=== PATIENT | female | born 1945 | race Caucasian/White ===

== ENCOUNTER 2018-01-10 05:54 | Inpatient (IN) | payer MEDICARE ==
--- NOTE | 2017-12-29 11:38 | HP ---
AMENDED REPORT NOW INCLUDES DESIGNATED COSIGNER HISTORY AND PHYSICAL: DATE OF ADMISSION/SURGERY: 01/10/18 DATE OF OFFICE VISIT: 12/28/17 SURGEON: Sandra Mendoza MD.* (DICTATED BY ESTEPHANIE DUBOSE) PROCEDURE: Right total knee arthroplasty. CHIEF COMPLAINT: Right knee pain. HISTORY OF PRESENT ILLNESS: Ms. Aguirre is a 72-year-old female with complaints of right knee pain. She has failed conservative treatment and elected to proceed with a right total knee arthroplasty, which is scheduled for 01/10/[address] Mendoza. PAST MEDICAL HISTORY: 1. DVT, PE 30 years ago. 2. SAFIA. 3. GERD. 4. History of toxic shock syndrome. 5. Hypothyroidism. 6. Crohn disease. PAST SURGICAL HISTORY: 1. Left total knee arthroplasty. 2. Cholecystectomy. 3. Cyst removal/I and D from the axilla. 4. Ex-fix application left lower extremity. 5. Vein surgery, unknown. 6. Tooth implant. CURRENT MEDICATIONS: 1. Naltrexone 4.5 mg daily. 2. Hydrochlorothiazide 25 mg daily. 3. Levothyroxine 50 mcg daily. 4. Multivitamin. 5. Lutein 6 mg daily. 6. Cinnamon. 7. Aspirin 81 mg daily. 8. Zeaxanthin. 9. CBD oil. 10. Joint care. 11. B100. 12. Bone maker complex. 13. Vitamin D3. 14. Ubiquinol. 15. Vitamin C 500 mg daily. ALLERGIES: SULFA, MESALAMINE, BACTRIM, NAPROXEN, PAROXETINE, REMICADE, MERCAPTOPURINE, ART INHIBITORS and RAMIPRIL. FAMILY HISTORY: Coronary artery disease and DVT. SOCIAL HISTORY: She is a 72-year-old female, she lives alone. She does not smoke or use drugs. She uses alcohol rarely. REVIEW OF SYSTEMS: A complete 14-point review of systems was reviewed with the patient and was positive for GERD, hypothyroidism and DVT/PE 30 years ago. She denies history of hepatitis, HIV or MRSA. PHYSICAL EXAMINATION GENERAL: She is well developed, well nourished, in no acute distress. VITAL SIGNS: She stands 5 feet 2 inches tall, weighs 230 pounds. Her blood pressure is 132/60 and heart rate is 88. HEENT: Normocephalic, atraumatic. NECK: Supple. No palpable lymph nodes. PULMONARY: The lungs are clear to auscultation bilaterally. CARDIO: Regular rate and rhythm. Strong S1, S2. ABDOMEN: Soft, nontender and nondistended. NEUROLOGICAL: She is alert and oriented x3. MUSCULOSKELETAL: Right lower extremity, the skin is intact. There are no open wounds or abrasions. Range of motion is 15-120 degrees of flexion. There is a moderate joint effusion. There is a varus deformity of the knee. 2+ dorsalis pedis pulse and intact sensation. IMPRESSION: Ms. Aguirre is a 72-year-old female with severe end-stage osteoarthritis of the right knee. She has failed conservative treatment and elected to proceed with a right total knee arthroplasty. Her surgery is scheduled for 01/10/[address] Mendoza discussed the risks and the benefits of the surgery with the patient and all of her questions were answered. She will follow up with Dr. Mendoza 2 weeks after the surgery. No TXA will be used on this patient. ESTEPHANIE DUBOSE [id number]/[facility] #: [id number] MTDD
[~2018-01-10 05:54] MED LIST: Buffered Lidocaine 0.9% SYRIN* 5 ML/SYR SYRINGE INTRADERM ONE
--- OUTSIDE RECORDS SUMMARY | 2018-01-10 06:00 | XMS REPORT ---
:1945 External Reference #:[id number] Author Organization [facility] [employer] Address [address] [address] Phone [phone] Care Team Providers Name Role Phone Carlos Escalante MD Primary Care Physician Unavailable Payers Type Date Identification Numbers Payment Provider Subscriber Commercial Effective: 2017 Policy Number: [id number] [employer] Medicare Chantelle Aguirre PayID: [id number] [address] [place] [address] Commercial Expires: 2017 Policy Number: Todays Option/[place] Chantelle Aguirre [id number] hi PayID: [id number] [address] [address] Attn: [place] [address] Problems Date Description Provider Status Onset: 08/22/2017 Morbid obesity Sandra Mendoza M.D. Active Onset: 08/22/2017 Localized, primary osteoarthritis Sandra Mendoza M.D. Active Family History Date Family Member(s) Problem(s) Comments General No Current Problems Social History Type Date Description Comments Lives With Alone Occupation Antiques Dealer ETOH Use Rarely consumes alcohol Smoking Patient is a former smoker Exercise Type/Frequency Exercises regularly Allergies, Adverse Reactions, Alerts Date Description Reaction Status Severity Comments 07/29/2010 Sulfa active 07/29/2010 Mesalamine active 07/29/2010 Bactrim active 07/29/2010 Naproxen active 07/29/2010 Paroxetine active 12/28/2017 Remicade active 12/28/2017 Mercaptopurine active 12/28/2017 Philippe Inhibitors active 12/28/2017 Ramipril active Medications Medication Date Status Form Strength Qnty SIG Indications Ordering Provider Naltrexone Low Active Powder 4.5mg 3Months 1 po qd Unknown Dose For Crohns 000 HCTZ Active 25mg. 90units 1 po qd Unknown 000 Levothyroxine Active Powder .05 Unknown Sodium Hydrate 000 Multi Vitamin Active Tablets 1 po qd Unknown 000 Lutein Active Capsules 6mg po qd Unknown 000 Cinnamon Active Capsules 500mg 1 po bid Unknown 000 Asa Active 81mg 30units 1 po qd Unknown 000 Zeaxanthin Active Unknown 000 CBD Oil Active Unknown 000 Joint Care Active Unknown 000 Vitamin B Active Unknown 000 Bone Maker Active Unknown Complex 000 Vitamin D3 Active Unknown 000 Ubiquinol Active Unknown 000 Vitamin C Active Unknown 000 Vicodin Hx Tablets 5-500mg 60tabs 1-2 by 715.16 Ariel Weinberg - lani Gil, every M.D. 011 4-6 hours and needed for pain Vital Signs Date Vital Result Comment 12/28/2017 Height 62 inches 5'2" Weight 232.00 lb Heart Rate 88 /min BP Systolic 132 mmHg BP Diastolic 60 mmHg BMI (Body Mass Index) 42.4 kg/m2 08/22/2017 Height 62 inches 5'2" Weight 236.50 lb Heart Rate 70 /min BP Systolic 130 mmHg BP Diastolic 70 mmHg Respiratory Rate 16 /min Body Temperature 97.4 F Pain Level 7 BMI (Body Mass Index) 43.3 kg/m2 11/11/2010 BP Systolic 160 mmHg BP Diastolic 76 mmHg Results Test Date Test Result H/L Range Note Inr/Protime 12/28/2017 Inr 0.92 0.77-1.02 Laboratory test finding 12/28/2017 Partial Thrombo 33.2 seconds 26.0- 36.3 Time PTT Type & Screen 12/28/2017 Patient Blood Type O Negative Antibody Screen NEGATIVE CBC Auto Diff 12/28/2017 White Blood Count 9.1 10^3/uL 3.5-10.8 Red Blood Count 4.10 10^6/uL 4.00-5.40 Hemoglobin 9.0 g/dL Low 12.0-16.0 Hematocrit 29 % Low 35-47 Mean Corpuscular Volume 72 fL Low 80-97 Mean Corpuscular Hemoglobin 22 pg Low 27-31 Mean Corpuscular HGB Conc 31 g/dL 31-36 Red Cell Distribution Width 18 % High 10.5-15 Platelet Count 403 10^3/uL 150-450 Mean Platelet Volume 8.6 um3 7.4-10.4 Abs Neutrophils 6.4 10^3/uL 1.5-7.7 Abs Lymphocytes 1.8 10^3/uL 1.0-4.8 Abs Monocytes 0.6 10^3/uL 0-0.8 Abs Eosinophils 0.3 10^3/uL 0-0.6 Abs Basophils 0 10^3/uL 0-0.2 Abs Nucleated RBC 0 10^3/uL Granulocyte % 70.3 % 38-83 Lymphocyte % 19.5 % Low 25-47 Monocyte % 7.0 % 0-7 Eosinophil % 3.0 % 0-6 Basophil % 0.2 % 0-2 Nucleated Red Blood Cells % 0 Procedures Date CPT Code Description Status 03/29/2012 39894 Xray Knee 3 Views Completed 12/02/2010 31674 Xray Knee 3 Views Completed 11/23/2010 62044 TKR Total Knee Replacement Completed 07/29/2010 57156 Xray Knee 3 Views Completed 07/29/2010 15083 Xray Knee 3 Views Completed 07/29/2010 78582 Xray Knee 3 Views Completed Encounters Type Date Location Provider CPT E/M Dx Office Visit 08/22/2017 [facility] Sandra Mendoza M.D. 64911 M25.561 10:30a [facility] M17.11 M25.461 E66.01 Z68.41 Office Visit 03/29/2012 1:15p [facility] M.D. 68112 715.16 [facility] Office Visit 04/28/2011 10:30a [facility] M.D. 70134 715.16 [facility] Office Visit 09/23/2010 10:00a [facility] M.D. 69039 719.46 [facility] 715.16 Office Visit 07/29/2010 3:00p [facility] M.D. 12679 719.46 [facility] Plan of Care Future Appointment(s):01/20/2018 10:15 am - Sandra Mendoza M.D. at [facility].01/10/2018 7:30 am - Carlos Krishnan PA-C at [facility].01/10/2018 7:30 am - BLADIMIR Dorsey at [facility].01/10/2018 7:30 am - Sandra Mendoza M.D. at [facility].12/28/2017 - Sandra Mendoza M.D.M25.561 Pain in right kneeFollow up:Follow up: 2 weeks after axzqwipT87.11 Unilateral primary osteoarthritis, right kneeM25.461 Effusion, right knee
--- OUTSIDE RECORDS SUMMARY | 2018-01-10 06:00 | XMS REPORT ---
:1945 External Reference #:[id number] Author Organization [employer] Address [address] [place] [address] Phone [phone] Care Team Providers Name Role Phone Carols Escalante MD Primary Care Physician Unavailable Payers Type Date Identification Numbers Payment Provider Subscriber Commercial Effective: 2017 Policy Number: [id number] [employer] Medicare Chantelle Aguirre PayID: [id number] [address] [place] [address] Commercial Expires: 2017 Policy Number: Todays Option/[place] Chantelle Aguirre [id number] ri PayID: [id number] [address] [address] Attn: [place] [address] Problems Date Description Provider Status Onset: 08/22/2017 [...] Procedures Date CPT Code Description Status 03/29/2012 94236 Xray Knee 3 Views Completed 12/02/2010 70336 Xray Knee 3 Views Completed 11/23/2010 28525 TKR Total Knee Replacement Completed 07/29/2010 60047 Xray Knee 3 Views Completed 07/29/2010 63136 Xray Knee 3 Views Completed 07/29/2010 33449 Xray Knee 3 Views Completed Encounters Type Date Location Provider CPT E/M Dx Office Visit 08/22/2017 [facility] Sandra Mendoza M.D. 09368 M25.561 10:30a [facility] M17.11 M25.461 E66.01 Z68.41 Office Visit 03/29/2012 1:15p [facility] M.D. 27289 715.16 [facility] Office Visit 04/28/2011 10:30a [facility] M.D. 14090 715.16 [facility] Office Visit 09/23/2010 10:00a [facility] M.D. 35159 719.46 [facility] 715.16 Office Visit 07/29/2010 3:00p [facility] M.D. 08200 719.46 [facility] Plan of Care Future Appointment(s):01/20/2018 10:15 am - Sandra Mendoza M.D. at [facility].01/10/2018 7:30 am - Carlos Krishnan PA-C at [facility].01/10/2018 7:30 am - BLADIMIR Dorsey at [facility].01/10/2018 7:30 am - Sandra Mendoza M.D. at [facility].12/28/2017 - Sandra Mendoza M.D.M25.561 Pain in right kneeFollow up:Follow up: 2 weeks after jofvzhyF06.11 Unilateral primary osteoarthritis, right kneeM25.461 Effusion, right knee
--- OUTSIDE RECORDS SUMMARY | 2018-01-10 06:00 | XMS REPORT ---
:1945 External Reference #:[id number] Author Organization [employer] Address [address] [place] [address] Phone [phone] Care Team Providers Name Role Phone Carlos Escalante MD Primary Care Physician Unavailable Payers Type Date Identification Numbers Payment Provider Subscriber Commercial Effective: 2017 Policy Number: [id number] Aetna Medicare Chantelle Aguirre PayID: [id number] [address] [place] [address] Commercial Expires: 2017 Policy Number: Todays Option/[place] Chantelle Aguirre [id number] mi PayID: [id number] [address] [address] Attn: [place] [address] Problems Date Description Provider Status Onset: 08/22/2017 [...] Tablets 5-500mg 60tabs 1-2 by 715.16 Ariel 011 - lani Gil, every M.DCee 011 4-6 hours and needed for pain [...] 160 mmHg BP Diastolic 76 mmHg Results Description No Information Procedures Date CPT Code Description Status 03/29/2012 12007 Xray Knee 3 Views Completed 12/02/2010 41184 Xray Knee 3 Views Completed 11/23/2010 90872 TKR Total Knee Replacement Completed 07/29/2010 21848 Xray Knee 3 Views Completed 07/29/2010 45329 Xray Knee 3 Views Completed 07/29/2010 81287 Xray Knee 3 Views Completed Encounters Type Date Location Provider CPT E/M Dx Office Visit 08/22/2017 [facility] Mendoza M.D. 91193 M25.561 10:30a [facility] M17.11 M25.461 E66.01 Z68.41 Office Visit 03/29/2012 1:15p [facility] M.D. 28357 715.16 [facility] Office Visit 04/28/2011 10:30a [facility] M.D. 58119 715.16 [facility] Office Visit 09/23/2010 10:00a [facility] M.D. 18032 719.46 [facility] 715.16 Office Visit 07/29/2010 3:00p [facility] M.D. 49927 719.46 [facility] Plan of Care Future Appointment(s):01/20/2018 10:15 am - Sandra Mendoza M.D. at [facility]01/10/2018 7:30 am - Carlos Krishnan PA-C at [facility]01/10/2018 7:30 am - BLADIMIR Dorsey at [facility]01/10/2018 7:30 am - Sandra Mendoza M.D. at [facility]12/28/2017 - Sandra Mendoza M.D.M25.561 Pain in right kneeFollow up:Follow up: 2 weeks after krebsjxF75.11 Unilateral primary osteoarthritis, right kneeM25.461 Effusion, right knee
[2018-01-10] MEDS ORDERED: ceFAZolin 2 GM PREMIX in ORs 2 GM/50 ML BAG IVPB ONE (06:09)
[2018-01-10] MEDS ORDERED: Buffered Lidocaine 0.9% SYRIN* 5 ML/SYR SYRINGE ONE (06:09)
[2018-01-10] MEDS ORDERED: Propofol* 10 MG/ML 20 ML BTL IV PUSH ONE ×5 (06:14→09:56)
[2018-01-10] MEDS ORDERED: Midazolam* 1 MG/ML 2 ML VIAL (2 MG) ONE ×4 (06:15→09:12)
[2018-01-10] MEDS ORDERED: fentaNYL* 50 MCG/ML 2 ML VIAL (100 MCG VIAL) ONE (06:15)
[2018-01-10] MEDS ORDERED: Lidocaine 2% PF * 5 ML VIAL ONE (06:15)
[2018-01-10] MEDS ORDERED: ROPIVACAINE 5 MG/ML 30 ML BTL (0.5%) ONE (06:16)
[2018-01-10] MEDS ORDERED: Bupivacaine 0.5% SDV PF* 30ML VIAL ONE (06:16)
[2018-01-10] MEDS ORDERED: KETAMINE HCL* 50 MG/ML 10 ML VIAL ONE (06:16)
[2018-01-10] MEDS ORDERED: Ropivacaine* 2 MG/ML 20 ML VIAL (0.2%) ONE (06:54)
[2018-01-10] MEDS ORDERED: Acetaminophen IV 1GM/100ML * 1,000 MG/100 ML VIAL IVPB ONE (10:18)
[2018-01-10] MEDS ORDERED: Naloxone* 0.4 MG/ML 1 ML VIAL IV PRN (10:18)
[2018-01-10] MEDS ORDERED: HYDROmorphone INJ1* 1 MG/ML SYRINGE IV PRN (10:18)
[2018-01-10] MEDS ORDERED: Polyethylene Glycol 3350* 17 GM PACKET PO PRN (10:28)
[2018-01-10] MEDS ORDERED: Bisacodyl SUPP* 10 MG SUPP PR PRN (10:28)
[2018-01-10] MEDS ORDERED: Cyclobenzaprine TAB* 10 MG PO PRN (10:28)
[2018-01-10] MEDS ORDERED: diPHENhydraMINE IV* 50 MG/ML 1 ml VIAL (BENADRYL) IV PRN (10:28)
[2018-01-10] MEDS ORDERED: oxyCODONE/Acetamin 5/325 MG* TAB PO PRN ×2 (10:28→10:48)
[2018-01-10] MEDS ORDERED: diPHENhydraMINE PO* 25 MG PO PRN (10:28)
[2018-01-10] MEDS ORDERED: Morphine VIAL* 4 MG/ML VIAL (1 ml vial) IV PRN (10:28)
[2018-01-10] MEDS ORDERED: Magnesium Hydroxide LIQ* 30 ML UDC PO PRN (10:28)
[2018-01-10] MEDS ORDERED: Acetaminophen TAB* 325 MG PO SCH (11:00)
[2018-01-10] MEDS ORDERED: Enoxaparin(*) 100 MG/ML SYR SUBCUT SCH (11:00)
[2018-01-10] MEDS ORDERED: Acetaminophen IV 1GM/100ML * 100 ML ONE (11:07)
[2018-01-10] MEDS ORDERED: HYDROcodone/ACETAMIN 5-325 MG* 1 TAB PO PRN (12:03)
[2018-01-10] MEDS ORDERED: traMADol TAB* 50 MG PO PRN (12:04)
[2018-01-10] MEDS: HYDROcodone/ACETAMIN 5-325 MG* 1 TAB PO PRN ×3 (12:16→22:47)
--- NOTE | 2018-01-10 12:18 | RAD ---
HISTORY: s/p right total knee arthroplasty COMPARISONS: August 22, 2017 VIEWS: 3 , Frontal and lateral views of the right knee FINDINGS: BONE DENSITY: There is diffuse osteopenia. BONES: The patient is status post right knee arthroplasty. There is no hardware failure or osteolysis. JOINTS: The patient is status post right knee arthroplasty. ALIGNMENT: There is no dislocation. SOFT TISSUES: Unremarkable. OTHER FINDINGS: None. IMPRESSION: STATUS POST RIGHT KNEE ARTHROPLASTY
--- NOTE | 2018-01-10 14:19 | CONS ---
CC: Sandra Mendoza MD; Carlos Escalante MD CONSULTATION REPORT: DATE OF CONSULTATION: 01/10/18 TIME OF EVALUATION: 11:00 a.m. REQUESTING PHYSICIAN: Sandra Mendoza MD PRIMARY CARE PROVIDER: Carlos Escalante MD HISTORY OF PRESENT ILLNESS: Mrs. Aguirre is a 72-year-old lady with a past medical history of morbid obesity with a BMI of 41.9, obstructive sleep apnea, osteoarthritis, hypertension, psoriasis who presents to the hospital for an elective right total knee replacement with Dr. Mendoza. The patient was evaluated in the PACU where she had no complaints, but she was still under effects of anesthesia. The patient had history of DVT and PE more than 30 years ago when she had a tibial fracture. She states that she was treated with warfarin for "some months " and then this was discontinued. PAST MEDICAL HISTORY: 1. Morbid obesity with a BMI of 41.9. 2. Hypothyroidism. 3. Obstructive sleep apnea. 4. Osteoarthritis. 5. Hypertension. 6. Psoriasis. 7. Crohn disease. MEDICATIONS: 1. Vitamin C 500 mg p.o. daily. 2. Aspirin 81 mg p.o. q.p.m. 3. Calcium carbonate 500 mg p.o. q.a.m. 4. CBD oil 1200 mg p.o. p.r.n. pain. 5. Cholecalciferol 2000 units p.o. q.a.m. 6. Cinnamon bark 500 mg p.o. q.a.m. 7. Glucosamine and chondroitin 1 tablet p.o. b.i.d. 8. Horse chestnut 300 mg p.o. daily. 9. Hydrochlorothiazide 25 mg p.o. daily. 10. Levothyroxine 50 mcg p.o. q.a.m. 11. Ocuvite Lutein 1 capsule p.o. daily. 12. Naltrexone 4 mg p.o. at bedtime. 13. Ubiquinol 200 mg p.o. q.a.m. 14. Vitamin B 1 capsule p.o. q.a.m. ALLERGIES: To MERCAPTOPURINE, ART INHIBITORS, MESALAMINE, NAPROXEN, PAROXETINE , RAMIPRIL, and SULFA. FAMILY HISTORY: Positive for coronary artery disease. SOCIAL HISTORY: She denies history of tobacco or drug use. Occasionally, she drinks alcohol. Surrogate decision maker is her sister, Tanesha Norman, phone number is [phone]. REVIEW OF SYSTEMS: Limited as the patient is still under the influence of anesthesia. PHYSICAL EXAMINATION: Vital Signs: Temperature 98.2, heart rate is 60, respiratory rate 17, oxygen saturation 96% on room air, blood pressure is 115/ 58. General: The patient is a pleasant morbidly obese lady, lying in bed, in no acute distress. HEENT: Pupils are equal. Moist mucous membranes. CVS: Normal S1, S2. Regular rate and rhythm. Chest: Breath sounds bilaterally with no added sounds. Abdomen is obese. Bowel sounds present. Extremities: Right lower extremity is in a cryo unit. Neuro: The patient is alert and awake, oriented to self and place. She is able to move all 4 extremities. ASSESSMENT AND PLAN: Mrs. Aguirre is a 72-year-old lady with a past medical history of morbid obesity with a BMI of 41.9, hypertension, obstructive sleep apnea, Crohn disease, hypothyroidism, osteoarthritis who was admitted for elective right total knee arthropathy. 1. Right total knee arthropathy. Management as per Orthopedics. 2. Hypertension. Her blood pressure is well controlled and we are going to resume her amlodipine and hydrochlorothiazide with holding parameters probably tomorrow. 3. Hypothyroidism. We will continue levothyroxine. 4. Crohn disease. The patient is on low dose naltrexone. 5. History of deep venous thrombosis and pulmonary embolism. The patient had deep venous thrombosis and pulmonary embolism 30 years ago after a lower extremity fracture. The plan is for DVT prophylaxis with therapeutic Lovenox and warfarin as the patient is a high risk for deep venous thrombosis in the postop period at this time again. 6. Obstructive sleep apnea. The patient will continue her CPAP while in the hospital. 7. Code status is full. TIME SPENT: Approximately 45 minutes were spent with the patient and family interview, medical records review, physical examination to complete this admission, more than half of this time was spent [id number] with the patient in coordination of care. [id number]/[facility] #: [id number] ALEKSANDER
[2018-01-10] MEDS: Ondansetron INJ* 2 MG/ML VIAL IV PRN ×2 (14:21→20:41)
[2018-01-10] MEDS: oxyCODONE TAB* 5 MG TAB PO PRN ×2 (15:38→20:40)
[2018-01-10] MEDS: ceFAZolin 1 GM ADVAN(*) 1 GM in NS 0.9% 50 ML* 50 ML IVPB SCH (16:20)
[2018-01-10] MEDS ORDERED: Warfarin TAB(*) 6 MG PO ONE (17:00)
--- NOTE | 2018-01-10 17:38 | PN ---
Progress Note - Progress Note Date of Service: 01/10/18 SOAP: Subjective: [Pt doing well. Sitting in chair. Complains of spasms that were causing trouble earlier. She states the flexaril 5mg was not working for her. Otherwise pain well controlled. ] Objective: [General: A&Ox3, NAD MSK, RLE: Dressing c/d/i, +df/pf. 2+ DP pulse. ] Vital Signs Temp 96.8 F 01/10/18 15:18 Pulse 58 01/10/18 15:18 Resp 20 01/10/18 15:38 BP 125/52 01/10/18 15:18 Pulse Ox 89 01/10/18 15:18 Intake & Output 01/09/18 01/10/18 01/10/18 18:59 06:59 18:59 Intake Total 1655 Output Total 625 Balance 1030 Weight 229 lb Intake: IV Fluids 1600 LR 1600 IVPB 55 Cefazolin 55 Output: [place] 625 Other: Estimated Stool Amount Medium Assessment: [POD 0 RTKA ] Plan: [Continue with PT Flexaril 10mg Continue with current pain meds Post op abx x 24 hrs ]
[2018-01-10] MEDS ORDERED: NALTREXONE 4 MG PO SCH (18:00)
[2018-01-10] MEDS: Acetaminophen TAB* 325 MG PO SCH (20:42)
[2018-01-10] MEDS: Docusate CAP* 100 MG PO SCH (20:42)
[2018-01-10] MEDS: Magnesium Hydroxide LIQ* 30 ML UDC PO SCH (20:43)
[2018-01-10] MEDS: Cyclobenzaprine TAB* 10 MG PO PRN (22:22)
[2018-01-11] MEDS: ceFAZolin 1 GM ADVAN(*) 1 GM in NS 0.9% 50 ML* 50 ML IVPB SCH ×2 (00:08→08:10)
[2018-01-11] MEDS: HYDROcodone/ACETAMIN 5-325 MG* 1 TAB PO PRN ×5 (03:29→21:36)
[2018-01-11] MEDS: Acetaminophen TAB* 325 MG PO SCH ×3 (03:36→21:45)
--- NOTE | 2018-01-11 04:25 | OP ---
OPERATIVE NOTE: DATE OF OPERATION: 01/10/18 DATE OF : 47 SURGEON: Sandra Mendoza MD SUPERVISOR GLYCERIN: ESTEPHANIE Rushing Cee Carliedunia did help throughout the procedure with preparation of the leg, wound retraction, manipulation of the knee, and wound closure. ANESTHESIOLOGIST: Dr. Elizabeth. ANESTHESIA: Epidural. PRE-OP DIAGNOSIS: Severe end-stage degenerative osteoarthritis of the right knee joint. POST-OP DIAGNOSIS: Severe end-stage degenerative osteoarthritis of the right knee joint. OPERATIVE PROCEDURE: Right total knee arthroplasty. COMPLICATIONS: None. TOURNIQUET TIME: 45 minutes. SPECIMENS: Bone and cartilage from the right knee joint sent to pathology. HARDWARE USED: This is [employer] cemented total knee arthroplasty hardware. For the femur, a size 5 right posterior stabilized Legion narrow femoral component. For the tibia, a size 5 right tibial base plate Yelena II. For the insert, an 11 mm posterior stabilized articular insert size 5/6. For the patella, a 32 mm 3 peg all polyp patella with 7.5 thickness. BRIEF HISTORY/INDICATIONS: Ms. Aguirre is a 72-year-old female with years of increasingly severe right knee pain. She failed conservative treatment with anti- inflammatories, pain medications, intraarticular injections, and physical therapy. Radiographs showed bone on bone arthritis. Due to continued pain and decreased quality of life, she elected to undergo a right total knee arthroplasty. Informed consent was obtained from the patient. She understood the risks of surgery included, but were not limited to bleeding, infection, damage to nearby structures, continued pain, need for further surgery, intraoperative fracture, nerve palsy, hardware failure or loosening, knee stiffness, loss of motion, stroke, heart attack, blood clot, and . She wished to proceed. INTRAOPERATIVE FINDINGS: Intraoperatively, the patient was noted to have severe end-stage arthritis in all 3 compartments with complete loss of cartilage along the weightbearing surface. She had significant osteophyte formation noted. DESCRIPTION OF PROCEDURE: Ms. Aguirre was identified in the preanesthesia unit. Her right lower extremity was marked as the correct operative side. Informed consent was signed and placed in the chart. The patient was taken to the operating room and placed under spinal anesthesia. A Boone catheter was placed. Tourniquet was placed on the right thigh. Right lower extremity was prepped and draped in the usual sterile fashion. Preop time-out was made to correctly identify the patient side and site. Appropriate perioperative antibiotics were given within 1 hour of incision. Tourniquet was inflated until tourniquet time for this procedure was 45 minutes. A midline incision was made at 10 blade and carried down to the extensor mechanism. A new 10 blade was used to make a standard medial parapatellar arthrotomy. The patella was subluxed laterally. Electrocautery was used to subperiosteally elevate soft tissue off the superomedial tibia to the mid sagittal plane. The knee was flexed up. The anterior horn of the lateral meniscus and ACL were sharply released. A drill was used to enter the distal femur. Intramedullary distal femoral cutting guide was pinned on the distal femur. Oscillating saw was used to make the distal femoral cut. Next, the external rotation guide was pinned on the distal femur. Distal femur was sized to a size 5. Size 5 multi-cutting jig was pinned on the distal femur. The oscillating saw was used to make the appropriate 4 chamfer cuts. The PCL was completely released. Tibia was subluxed anteriorly. Extramedullary tibial cutting guide was pinned on the proximal tibia. The proximal tibial cut was made with an oscillating saw perpendicular to the mechanical axis of the tibia. The bone was carefully removed. The knee was brought out into full extension. The spacer block had excellent fit with the knee in full extension. Medial and lateral ligaments were well balanced. Flexion and extension gaps were well balanced. The knee was flexed up. Lamina sandfill operator surface was placed both medially and laterally. Any remaining meniscus was carefully removed using electrocautery. Curved osteotome was used to remove any posterior osteophytes. Tibial tray and drop aguilar were placed and once again confirmed a satisfactory tibial cut. A size 5 narrow right femoral trial was impacted on to the distal femur and had excellent fit and stability. The box for the posterior stabilized implant was prepared using a reamer and box-cut osteotome. A size 5 tibial tray trial with an 11-mm insert trial was placed. The knee was taken through a range of motion. The knee had full extension to 130 degrees of flexion with satisfactory patellofemoral tracking. The patella was everted. 7 mm of patellar bone and cartilage was carefully removed using an oscillating saw. The patella was sized to a size 32. Three peg holes were drilled through the size 32 guide. A 32 trial patella with 7.5 thickness was placed and the knee was taken through range of motion. There was satisfactory patellofemoral tracking. All trials were carefully removed. The tibia was subluxed anteriorly and sized to a size 5. Proximal tibia was prepared using a size 5 keel punch. All bony cut surfaces were copiously irrigated with sterile saline and dried. Final implants were cemented into place starting with the tibia, followed by the femur , and last the patella. An 11-mm insert trial was placed and the knee was brought out into full extension. The tourniquet was turned down at 44 minutes. Electrocautery was used to obtain meticulous hemostasis. The knee was copiously irrigated with sterile saline. Once the cement had fully cured, the insert trial was removed. Any excess cement was removed from around the capsule and hardware. Final insert chosen was an 11-mm posterior stabilized articular insert size 5/6. This was locked into position on the tibial tray. Stability of the insert was checked and rechecked and noted to be stable. The extensor mechanism was closed using interrupted #1 Vicryl. The rest of the incision was closed in a layered fashion using 0 and 2-0 Vicryl. Skin was closed using running 3-0 nylon suture. Sterile Xeroform, 4x4s, and Webril were used to cover the incision. Philippe wrap and cold pack were placed over this. The patient's anesthesia was reversed without difficulty. She was taken to the PACU in stable condition. Intended weightbearing will be weight bearing as tolerated. Intended DVT prophylaxis will be therapeutic dose Lovenox because of prior blood clot history. She will be bridged with this until she is therapeutic on Coumadin. [id number]/[facility] #: [id number] [facility]
[2018-01-11 06:00] LABS: Hematocrit 22 % (35-47); Hemoglobin 6.7 g/dl (12.0-16.0); Mean Platelet Volume 8.4 um3 (7.4-10.4); Platelet Count 304 10^3/ul (150-450)
[2018-01-11 06:06] LABS: INR 1.02 (0.77-1.02)
[2018-01-11] MEDS: Cyclobenzaprine TAB* 10 MG PO PRN ×3 (06:13→23:22)
[2018-01-11] MEDS: oxyCODONE TAB* 5 MG TAB PO PRN (06:14)
[2018-01-11 06:17] LABS: EGFR Non-African American 70.7 (>60)
[2018-01-11] MEDS: Potassium Chlor TAB* 20 MEQ TAB.ER PO SCH ×2 (08:12→21:40)
[2018-01-11] MEDS: Vitamin B Complex TAB PO SCH (08:13)
[2018-01-11] MEDS: Ascorbic Acid TAB* 500 MG PO SCH (08:14)
[2018-01-11] MEDS: Cholecalciferol TAB* 1000 UNITS PO SCH (08:14)
[2018-01-11] MEDS: Calcium Carbonate TAB* 1250 MG (CALCIUM 500 MG) PO SCH (08:14)
[2018-01-11] MEDS: Levothyroxine TAB* 50 MCG TAB PO SCH (08:16)
[2018-01-11] MEDS: Docusate CAP* 100 MG PO SCH ×2 (08:16→21:45)
[2018-01-11] MEDS: Magnesium Hydroxide LIQ* 30 ML UDC PO SCH ×2 (08:17→21:45)
[2018-01-11] MEDS ORDERED: Hydrochlorothiazide TAB* 25 MG PO SCH ×2 (09:00)
[2018-01-11] MEDS: Enoxaparin(*) 100 MG/ML SYR SUBCUT SCH ×2 (11:34→23:26)
--- NOTE | 2018-01-11 12:38 | PN ---
Progress Note - Progress Note Date of Service: 01/11/18 SOAP: Subjective: []Patient seen and examined at bedside. She is laying in bed without complaint. She has not done PT due to low H&H and need for blood transfusion which was ordered this morning. Denies any chest pain, shortness of breath, dizziness or nausea. Objective: [] General: Well appearing, NAD, laying in bed RLE: RIght knee dressing CDI, cryo unit in use. Thigh soft, DF/PF intact, Dp2+, sensation intact distally. Calves supple and nontender without erythema, edema or palpable cords Assessment: []POD 1 sp right total knee arthroplasty acute bloodloss anemia Plan: []WBAT PT/OT - held this morning due to hgb less than 7 Lovenox 100 mg SQ BID. Dose held this morning due to acute bloodloss anemia. Anticipate giving evening dose of lovenox and warfarin 8 mg after PRBCs transfused as long as hgb above 7. recheck H&H after blood transfusion potassium low at 3.3, replacement ordered Vital Signs Temp 97.7 F 01/11/18 10:15 Pulse 67 01/11/18 10:15 Resp 20 01/11/18 11:33 BP 108/40 01/11/18 10:15 Pulse Ox 97 01/11/18 10:15 Intake & Output 01/10/18 01/11/18 01/11/18 18:59 06:59 18:59 Intake Total 1655 1714 410 Output Total 625 950 400 Balance 1030 764 10 Intake: IV Fluids 1600 1054 LR 1600 1054 IVPB 55 Cefazolin 55 Oral 660 410 Output: Urine 400 Boone 625 950 Other: Estimated Stool Amount Medium Laboratory Last Values Hgb 6.7 g/dl (12.0-16.0) L 01/11/18 05:25 Hct 22 % (35-47) L 01/11/18 05:25 Plt Count 304 10^3/ul (150-450) 01/11/18 05:25 MPV 8.4 um3 (7.4-10.4) 01/11/18 05:25 INR (Anticoag Therapy) 1.02 (0.77-1.02) 01/11/18 05:25 Sodium 136 mmol/L (135-145) 01/11/18 05:25 Potassium 3.3 mmol/L (3.5-5.0) L 01/11/18 05:25 Chloride 104 mmol/L (101-111) 01/11/18 05:25 Carbon Dioxide 28 mmol/L (22-32) 01/11/18 05:25 Anion Gap 4 mmol/L (2-11) 01/11/18 05:25 BUN 10 mg/dL (6-24) 01/11/18 05:25 Creatinine 0.80 mg/dL (0.51-0.95) 01/11/18 05:25 Est GFR ( Amer) 85.6 (>60) 01/11/18 05:25 Est GFR (Non-Af Amer) 70.7 (>60) 01/11/18 05:25 BUN/Creatinine Ratio 12.5 (8-20) 01/11/18 05:25 Glucose 124 mg/dL (70-100) H 01/11/18 05:25 Calcium 8.1 mg/dL (8.6-10.3) L 01/11/18 05:25 Hepatitis B Antibody Not immune (Immune) A 01/10/18 10:05 Hep Bs Antigen Nonreactive (Nonreactive) 01/10/18 10:05 Hep Bs Antibody, Quant < 3.10 mIU/mL (>12) 01/10/18 10:05 Hepatitis C Antibody Nonreactive (Nonreactive) 01/10/18 10:05 HIV 1&2 Antibody Rapid Nonreactive (Nonreactive) 01/10/18 10:05 Blood Type O Negative 01/11/18 05:22 Antibody Screen Negative 01/11/18 05:22 Crossmatch See Detail 01/11/18 05:22
--- NOTE | 2018-01-11 13:07 | PN ---
Subjective Date of Service: 01/11/18 Interval History: Patient in recliner working with physical therapy. Patient has good color and is participating well in PT. Reports pain in right knee and occasional spams in thigh Patient has received one unit of PRBCs. Reports she has recently received morphine and flexeril Denies dizziness, cp, palpitations, sob, or n/v. Family History: Unchanged from Admission Social History: Unchanged from Admission Past Medical History: Unchanged from Admission Objective Active Medications: Acetaminophen (Tylenol Tab*) 975 mg PO Q8H [facility] Last Admin: 01/11/18 11:35 Dose: Not Given Hydrocodone Bitart/Acetaminophen (Neoga 5-325 Tab*) 1 tab PO Q4H PRN PRN Reason: PAIN - MILD TO MODERATE Hydrocodone Bitart/Acetaminophen (Neoga 5-325 Tab*) 2 tab PO Q4H PRN PRN Reason: PAIN - MODERATE TO SEVERE Last Admin: 01/11/18 11:33 Dose: 2 tab Ascorbic Acid (Vitamin C Tab*) [facility] [place] Last Admin: 01/11/18 08:14 Dose: 500 mg Bisacodyl (Dulcolax Supp*) 10 mg UT DAILY PRN PRN Reason: constipation Calcium Carbonate (Calcium Carbonate Tab*) 1,250 mg [facility] [place] Last Admin: 01/11/18 08:14 Dose: 1,250 mg Cholecalciferol (Vitamin D Tab*) 2,000 units [facility] [place] Last Admin: 01/11/18 08:14 Dose: 2,000 units Cyclobenzaprine HCl (Flexeril Tab*) 10 mg PO TID PRN PRN Reason: SPASMS Last Admin: 01/11/18 06:13 Dose: 10 mg Diphenhydramine HCl (Benadryl Iv*) 25 mg IV Q6H PRN PRN Reason: itching Diphenhydramine HCl (Benadryl Po*) 25 mg PO Q6H PRN PRN Reason: itching Docusate Sodium (Colace Cap*) 100 mg PO BID [facility] Last Admin: 01/11/18 08:16 Dose: Not Given Enoxaparin Sodium (Lovenox(*)) 100 mg SUBCUT Q12H [facility] Last Admin: 01/11/18 11:34 Dose: Not Given Lactated Ringer's (Lactated Ringers 1000 Ml Bag*) 1,000 mls @ 100 mls/hr IV PER RATE [facility] Last Admin: 01/11/18 00:08 Dose: 100 mls/hr Lactulose (Lactulose*) 30 ml PO Q6H PRN PRN Reason: constipation Levothyroxine Sodium (Synthroid Tab*) 50 mcg PO QAM [facility] Last Admin: 01/11/18 08:16 Dose: 50 mcg Magnesium Hydroxide (Milk Of Magnesia Liq*) 30 ml PO BID [facility] Last Admin: 01/11/18 08:17 Dose: Not Given Magnesium Hydroxide (Milk Of Magnesia Liq*) 30 ml PO Q6H PRN PRN Reason: constipation Morphine Sulfate (Morphine Vial*) 4 mg IV Q2H PRN PRN Reason: PAIN Last Admin: 01/10/18 14:20 Dose: 4 mg Ondansetron HCl (Zofran Inj*) 4 mg IV Q6H PRN PRN Reason: nausea Last Admin: 01/10/18 20:41 Dose: 4 mg Oxycodone HCl (Roxycodone Tab*) 10 mg PO Q4H PRN PRN Reason: pAIN-SEVERE Last Admin: 01/11/18 06:14 Dose: 10 mg Pharmacy Profile Note (Coumadin Daily Reminder*) 1 note FOLLOW UP 1700 [facility] Last Admin: 01/10/18 17:59 Dose: 1 note Polyethylene Glycol/Electrolytes (Miralax*) 17 gm PO DAILY PRN PRN Reason: Constipation Potassium Chloride (Klor Con Er Tab*) 20 meq PO BID [facility] Last Admin: 01/11/18 08:12 Dose: 20 meq Tramadol HCl (Ultram*) 50 mg PO Q6H PRN PRN Reason: PAIN - MODERATE Vitamin B Complex/Vitamin E (B Complex-50*) 1 [facility] [place] Last Admin: 01/11/18 08:13 Dose: 1 tab Vital Signs - 8 hr 01/11/18 01/11/18 01/11/18 05:37 06:13 06:14 Temperature Pulse Rate Respiratory 16 16 18 Rate Blood Pressure (mmHg) O2 Sat by Pulse Oximetry 01/11/18 01/11/18 01/11/18 07:28 07:31 08:13 Temperature 99.2 F Pulse Rate 73 Respiratory 17 20 18 Rate Blood Pressure 104/44 (mmHg) O2 Sat by Pulse 91 95 Oximetry 01/11/18 01/11/18 01/11/18 09:58 10:00 10:10 Temperature 97.9 F 97.9 F Pulse Rate 69 69 Respiratory 18 18 18 Rate Blood Pressure 101/39 101/39 (mmHg) O2 Sat by Pulse 91 94 Oximetry 01/11/18 01/11/18 10:15 11:33 Temperature 97.7 F Pulse Rate 67 Respiratory 16 20 Rate Blood Pressure 108/40 (mmHg) O2 Sat by Pulse 97 Oximetry Oxygen Devices in Use Now: None Appearance: Well appearing. Eyes: No Scleral Icterus Ears/Nose/Mouth/Throat: Mucous Membranes Moist Neck: NL Appearance and Movements; NL JVP Respiratory: Symmetrical Chest Expansion and Respiratory Effort, Clear to Auscultation Cardiovascular: NL Sounds; No Murmurs; No JVD, RRR Abdominal: NL Sounds; No Tenderness; No Distention Extremities: No Clubbing, Cyanosis Skin: No Rash or Ulcers Neurological: Alert and Oriented x 3 Nutrition: Taking PO's Result Diagrams: 01/11/18 05:25 01/11/18 05:25 Additional Lab and Data: Abnormal Lab Results 01/10/18 01/11/18 01/11/18 10:05 05:22 05:25 Hgb 6.7 L Hct 22 L Plt Count 304 MPV 8.4 INR (Anticoag Therapy) Sodium Potassium Chloride Carbon Dioxide Anion Gap BUN Creatinine Est GFR ( Amer) Est GFR (Non-Af Amer) BUN/Creatinine Ratio Glucose Calcium Hep Bs Antigen Nonreactive Blood Type O Negative Antibody Screen Negative Crossmatch See Detail 01/11/18 01/11/18 05:25 05:25 Hgb Hct Plt Count MPV INR (Anticoag Therapy) 1.02 Sodium 136 Potassium 3.3 L Chloride 104 Carbon Dioxide 28 Anion Gap 4 BUN 10 Creatinine 0.80 Est GFR ( Amer) 85.6 Est GFR (Non-Af Amer) 70.7 BUN/Creatinine Ratio 12.5 Glucose 124 H Calcium 8.1 L Hep Bs Antigen Blood Type Antibody Screen Crossmatch Microbiology and Other Data: . Diagnostic Imaging: . Assess/Plan/Problems-Billing Assessment: 72 yr old patient with past medical hx of morbid obesity, patti, chrons, hypohtyroid, and oa. She is s/p right total knee replacement. - Patient Problems (1) Status post total right knee replacement Comment: - Management as per ortho (2) Anemia Comment: - Patient currently receiving transfusion of PRBCs and will have repeat H&H after per ortho management. (3) Electrolyte abnormality Comment: - Potassium low at 3.3. Replacement ordered by ortho - Recheck BMP tomorrow (4) Hypertension Comment: - Hypotensive. - Continue to hold all BP medications (5) Hypothyroid Comment: - Continue levothyroxine (6) DVT (deep venous thrombosis) Comment: - Management as per ortho - Patient is high risk - If Hgb above 7 on repeat this afternoon patient will receive evening dose of Lovenox and Coumadin (7) Full code status Comment: - Full Code Status and Disposition: Inpatient on [facility]. We will continue to follow. Thank you Attending: Joseph Hardy
[2018-01-11 14:02] LABS: Hematocrit 26 % (35-47); Hemoglobin 8.1 g/dl (12.0-16.0)
[2018-01-11] MEDS ORDERED: Warfarin TAB(*) 4 MG PO ONE (17:00)
[2018-01-12] MEDS: Acetaminophen TAB* 325 MG PO SCH ×2 (05:04→11:50)
[2018-01-12 06:14] LABS: Hematocrit 24 % (35-47); Hemoglobin 7.6 g/dl (12.0-16.0); Mean Platelet Volume 8.3 um3 (7.4-10.4); Platelet Count 295 10^3/ul (150-450)
[2018-01-12 06:19] LABS: INR 1.21 (0.77-1.02)
[2018-01-12 06:37] LABS: EGFR Non-African American 88.3 (>60)
[2018-01-12] MEDS: Calcium Carbonate TAB* 1250 MG (CALCIUM 500 MG) PO SCH (08:39)
[2018-01-12] MEDS: Cholecalciferol TAB* 1000 UNITS PO SCH (08:39)
[2018-01-12] MEDS: Potassium Chlor TAB* 20 MEQ TAB.ER PO SCH (08:40)
[2018-01-12] MEDS: Vitamin B Complex TAB PO SCH (08:40)
[2018-01-12] MEDS: Levothyroxine TAB* 50 MCG TAB PO SCH (08:40)
[2018-01-12] MEDS: Docusate CAP* 100 MG PO SCH (08:40)
[2018-01-12] MEDS: Ascorbic Acid TAB* 500 MG PO SCH (08:40)
[2018-01-12] MEDS: HYDROcodone/ACETAMIN 5-325 MG* 1 TAB PO PRN ×2 (08:40→12:47)
[2018-01-12] MEDS: Magnesium Hydroxide LIQ* 30 ML UDC PO SCH (08:41)
--- NOTE | 2018-01-12 09:25 | PN ---
Progress Note - Progress Note Date of Service: 01/12/18 SOAP: Subjective: []Patient seen and examined OOB in chair. She feels very well with tolerable RLE pain. Denies CP, SOB, dizziness, lightheadedness, nausea, leg numbness. Objective: [] General: Well appearing, NAD RLE: Right knee dressing changed by Dr Mendoza this morning, dressing is CDI, cryo unit in use. Thigh soft, DF/PF intact, Dp2+, sensation intact distally. Calves supple and nontender without erythema, edema or palpable cords Assessment: []POD 2 sp right total knee arthroplasty acute bloodloss anemia Plan: []WBAT PT/OT Lovenox 100 mg SQ BID. Coumadin 8mg today. Will keep lovenox going at home until INR therapeutic for 24 hours 7.6/24 H&H today. She is asymptomatic. If she meets her goals with PT today will discharge her to home and have home nursing check H&H tomorrow. Vital Signs Temp 98.1 F 01/12/18 07:35 Pulse 82 01/12/18 07:35 Resp 18 01/12/18 08:40 BP 145/52 01/12/18 07:35 Pulse Ox 92 01/12/18 08:00 Intake & Output 01/11/18 01/12/18 01/12/18 18:59 06:59 18:59 Intake Total 620 600 Output Total 1250 1300 150 Balance -630 -700 -150 Intake: Oral 620 600 Output: Urine 1250 1300 150 Laboratory Last Values Hgb 7.6 g/dl (12.0-16.0) L 01/12/18 05:54 Hct 24 % (35-47) L 01/12/18 05:54 Plt Count 295 10^3/ul (150-450) 01/12/18 05:54 MPV 8.3 um3 (7.4-10.4) 01/12/18 05:54 INR (Anticoag Therapy) 1.21 (0.77-1.02) H 01/12/18 05:53 Sodium 136 mmol/L (135-145) 01/12/18 05:54 Potassium 3.7 mmol/L (3.5-5.0) 01/12/18 05:54 Chloride 105 mmol/L (101-111) 01/12/18 05:54 Carbon Dioxide 26 mmol/L (22-32) 01/12/18 05:54 Anion Gap 5 mmol/L (2-11) 01/12/18 05:54 BUN 9 mg/dL (6-24) 01/12/18 05:54 Creatinine 0.66 mg/dL (0.51-0.95) 01/12/18 05:54 Est GFR ( Amer) 106.8 (>60) 01/12/18 05:54 Est GFR (Non-Af Amer) 88.3 (>60) 01/12/18 05:54 BUN/Creatinine Ratio 13.6 (8-20) 01/12/18 05:54 Glucose 120 mg/dL (70-100) H 01/12/18 05:54 Calcium 8.2 mg/dL (8.6-10.3) L 01/12/18 05:54 Hepatitis B Antibody Not immune (Immune) A 01/10/18 10:05 Hep Bs Antigen Nonreactive (Nonreactive) 01/10/18 10:05 Hep Bs Antibody, Quant < 3.10 mIU/mL (>12) 01/10/18 10:05 Hepatitis C Antibody Nonreactive (Nonreactive) 01/10/18 10:05 HIV 1&2 Antibody Rapid Nonreactive (Nonreactive) 01/10/18 10:05 Blood Type O Negative 01/11/18 05:22 Antibody Screen Negative 01/11/18 05:22 Crossmatch See Detail 01/11/18 05:22 Donor Unit # [id number] 01/11/18 15:04 Post-Trans Blood Type O Negative 01/11/18 15:04 Post-Trans KINGSLEY Negative 01/11/18 15:04
[2018-01-12] MEDS: Cyclobenzaprine TAB* 10 MG PO PRN (11:48)
[2018-01-12] MEDS: Enoxaparin(*) 100 MG/ML SYR SUBCUT SCH (11:49)
[2018-01-12 13:05] VITALS: BP 117/43
--- NOTE | 2018-01-12 16:33 | PN ---
Subjective Date of Service: 01/12/18 Interval History: Resting in recliner. Reports right knee pain that is tolerable with current medication regime. States she feels well and ready for discharge. 12 ROS completed and all other negative except above mentioned Family History: Unchanged from Admission Social History: Unchanged from Admission Past Medical History: Unchanged from Admission Objective Active Medications: Acetaminophen (Tylenol Tab*) 975 mg PO Q8H [facility] Last Admin: 01/12/18 11:50 Dose: Not Given Hydrocodone Bitart/Acetaminophen (Tolono 5-325 Tab*) 1 tab PO Q4H PRN PRN Reason: PAIN - MILD TO MODERATE Hydrocodone Bitart/Acetaminophen (Tolono 5-325 Tab*) 2 tab PO Q4H PRN PRN Reason: PAIN - MODERATE TO SEVERE Last Admin: 01/12/18 12:47 Dose: 2 tab Ascorbic Acid (Vitamin C Tab*) 500 mg PO [facility] Last Admin: 01/12/18 08:40 Dose: 500 mg Bisacodyl (Dulcolax Supp*) 10 mg [place] DAILY PRN PRN Reason: constipation Calcium Carbonate (Calcium Carbonate Tab*) 1,250 mg PO [facility] Last Admin: 01/12/18 08:39 Dose: 1,250 mg Cholecalciferol (Vitamin D Tab*) [facility] [place] Last Admin: 01/12/18 08:39 Dose: 2,000 units Cyclobenzaprine HCl (Flexeril Tab*) 10 mg PO TID PRN PRN Reason: SPASMS Last Admin: 01/12/18 11:48 Dose: 10 mg Diphenhydramine HCl (Benadryl Iv*) 25 mg IV Q6H PRN PRN Reason: itching Diphenhydramine HCl (Benadryl Po*) 25 mg PO Q6H PRN PRN Reason: itching Docusate Sodium (Colace Cap*) 100 mg PO BID [facility] Last Admin: 01/12/18 08:40 Dose: 100 mg Enoxaparin Sodium (Lovenox(*)) 100 mg SUBCUT Q12H [facility] Last Admin: 01/12/18 11:49 Dose: 100 mg Lactated Ringer's (Lactated Ringers 1000 Ml Bag*) 1,000 mls @ 100 mls/hr IV PER RATE [facility] Last Admin: 01/11/18 00:08 Dose: 100 mls/hr Lactulose (Lactulose*) 30 ml PO Q6H PRN PRN Reason: constipation Levothyroxine Sodium (Synthroid Tab*) 50 mcg PO QAM [facility] Last Admin: 01/12/18 08:40 Dose: 50 mcg Magnesium Hydroxide (Milk Of Magnesia Liq*) 30 ml PO BID [facility] Last Admin: 01/12/18 08:41 Dose: Not Given Magnesium Hydroxide (Milk Of Magnesia Liq*) 30 ml PO Q6H PRN PRN Reason: constipation Morphine Sulfate (Morphine Vial*) 4 mg IV Q2H PRN PRN Reason: PAIN Last Admin: 01/10/18 14:20 Dose: 4 mg Ondansetron HCl (Zofran Inj*) 4 mg IV Q6H PRN PRN Reason: nausea Last Admin: 01/10/18 20:41 Dose: 4 mg Oxycodone HCl (Roxycodone Tab*) 10 mg PO Q4H PRN PRN Reason: pAIN-SEVERE Last Admin: 01/11/18 06:14 Dose: 10 mg Pharmacy Profile Note (Coumadin Daily Reminder*) 1 note FOLLOW UP 1700 [facility] Last Admin: 01/11/18 17:05 Dose: 1 note Polyethylene Glycol/Electrolytes (Miralax*) 17 gm PO DAILY PRN PRN Reason: Constipation Potassium Chloride (Klor Con Er Tab*) 20 meq PO BID [facility] Last Admin: 01/12/18 08:40 Dose: 20 meq Tramadol HCl (Ultram*) 50 mg PO Q6H PRN PRN Reason: PAIN - MODERATE Vitamin B Complex/Vitamin E (B Complex-50*) [facility] [place] Last Admin: 01/12/18 08:40 Dose: 1 tab Vital Signs - 8 hr 01/12/18 01/12/18 01/12/18 08:40 11:09 11:46 Temperature 98.5 F Pulse Rate 73 Respiratory 18 16 18 Rate Blood Pressure 117/43 (mmHg) O2 Sat by Pulse 95 Oximetry 01/12/18 01/12/18 01/12/18 11:48 12:47 13:50 Temperature Pulse Rate Respiratory 18 18 16 Rate Blood Pressure (mmHg) O2 Sat by Pulse Oximetry 01/12/18 16:00 Temperature Pulse Rate Respiratory Rate Blood Pressure (mmHg) O2 Sat by Pulse 95 Oximetry Oxygen Devices in Use Now: None, CPAP Appearance: Well appearing Eyes: No Scleral Icterus Ears/Nose/Mouth/Throat: Mucous Membranes Moist Neck: NL Appearance and Movements; NL JVP Respiratory: Symmetrical Chest Expansion and Respiratory Effort, Clear to Auscultation Cardiovascular: NL Sounds; No Murmurs; No JVD, RRR, No Edema Abdominal: NL Sounds; No Tenderness; No Distention Lymphatic: No Cervical Adenopathy Extremities: No Clubbing, Cyanosis Skin: No Rash or Ulcers Neurological: Alert and Oriented x 3 Nutrition: Taking PO's Result Diagrams: 01/12/18 05:54 01/12/18 05:54 Additional Lab and Data: . Microbiology and Other Data: . Diagnostic Imaging: . Assess/Plan/Problems-Billing Assessment: 72 yr old patient with past medical hx of morbid obesity, patti, chrons, hypothyroid, and oa. She is s/p right total knee replacement. - Patient Problems (1) Status post total right knee replacement Comment: - Management as per ortho (2) Anemia Comment: - H&H improved after one unit per ortho note. - Patient received shcedule anticoags last night. - Patient to have repeat H&H outpatient per ortho (3) Electrolyte abnormality Comment: - Potassium 3.7 - Patient reports she has been on HCTZ for many years and has never needed potassium replacement. Discussed with Ortho PA who states she will not need Potassium after discharge and I agree. - I encouraged patient to follow up with PCP as she will be restarting her HCTZ and should have electrolytes monitored. (4) Hypertension Comment: - Normotensive. - Resume HCTZ. - Follow up with PCP (5) Hypothyroid Comment: - Continue levothyroxine (6) DVT (deep venous thrombosis) Comment: - Management as per ortho (7) Full code status Comment: - Full Code Status and Disposition: Inpatient on [facility]. Patient is being discharged today by ortho. We are signing off. Please reconsult as needed Attending: Joseph Hardy
--- NOTE | 2018-01-12 23:21 | DS ---
DISCHARGE SUMMARY: DATE OF ADMISSION: 01/10/18 DATE OF DISCHARGE: 01/12/18 PROVIDER: Dr. Sandra Mendoza.* (DICTATED BY ESTEPHANIE TANNER) PREOPERATIVE DIAGNOSIS: Severe end-stage degenerative osteoarthritis of the right knee joint. OPERATIVE PROCEDURE: Right total knee arthroplasty. HISTORY: Ms. Aguirre is a 72-year-old female with years of increasingly severe right knee pain. She failed conservative management with anti-inflammatories, pain medication, intraarticular injections, and physical therapy. She elected to undergo a right total knee arthroplasty. HOSPITAL COURSE: The patient was admitted to [facility] on . She underwent a right total knee arthroplasty without complication. Postop day 1, she was well appearing, in no acute distress. Dressing clean, dry, and intact. Dorsiflexion and plantarflexion intact. DP pulse 2+. Sensation intact distally. Due to hemoglobin of 6.7 and hematocrit of 22, she was given 1 unit of packed red blood cells. She had a transfusion reaction in the way of blood pressure with systolic pressure increasing by more than 30. With 1 unit of blood, her hemoglobin and hematocrit came to 8.1 and 26. Her Lovenox was held on the morning of 01/11/18 and resumed on evening of 01/11/18 along with her Coumadin on 01/12/18. Postop day 2, she is well appearing, in no acute distress. Dressing was changed by Dr. Mendoza this morning. Dressing clean, dry , and intact. Dorsiflexion and plantarflexion intact. DP pulse 2+. Sensation intact distally. Hemoglobin 7.6, hematocrit 24. The patient was asymptomatic. She met all goals of physical therapy. She was deemed to be medically and orthopedically stable for discharge to home. DISCHARGE MEDICATIONS: 1. Ocuvite 1 cap p.o. q.a.m. 2. Active Q 200 mg p.o. q.a.m. 3. Ascorbic acid 500 mg p.o. q.a.m. 4. Vitamin D3 2000 units p.o. q.a.m. 5. Calcium carbonate 500 mg p.o. q.a.m. 6. Vitamin B complex 1 cap p.o. q.a.m. 7. Horse chestnut seed 300 mg p.o. q.a.m. 8. Cinnamon bark 500 mg p.o. q.a.m. 9. Glucosamine/chondroitin 1 cap p.o. b.i.d. 10. CBD oil 1200 mg p.o. once p.r.n. 11. Naltrexone 12. Levothyroxine 50 mcg p.o. q.a.m. 13. Hydrochlorothiazide 25 mg p.o. q.a.m. 14. Aspirin 81 mg was held until the patient is done with Coumadin. 15. Docusate 100 mg p.o. b.i.d. p.r.n. 16. Lovenox 100 mg p.o. q.12 hours for the next 5 days or until INR reaches a therapeutic state for 24 hours. 17. Arverne 5/325 one to two tabs every 4 to 6 hours as needed for pain, max daily dose of 10. 18. Acetaminophen 975 mg q.8 hours p.r.n. 19. Warfarin 2 mg 1 to 3 tabs daily, dose depends on INR. DISCHARGE INSTRUCTIONS: Discharge to home. Weightbearing as tolerated. Continue Lovenox 100 mg p.o. every 12 hours until Tuesday01/16/18 when we will recheck your INR to see if you have a therapeutic INR and you will be instructed if you need to continue Lovenox. At this time, you will also be taking Coumadin for a duration of 30 days. Last INR on 01/12/18 was 1.21. Coumadin dosin01/12/18 8 mg, 01/13/18 6 mg, 01/14/18 and 01/15/18 please take 4 mg each day, 01/16/18 recheck INR for further dosing instructions. Recheck H and H on 01/13/18. Pain control with hydrocodone/acetaminophen 5/325 one to two tabs by mouth every 4 to 6 hours as needed for pain, max is 10 tabs per day. Follow up with Dr. Mendoza in 10 to 14 days. ESTEPHANIE TANNER [id number]/[facility] #: [id number] [facility]
--- NOTE | 2018-01-13 11:50 | DS ---
DICTATION CANCELED. DISCHARGE SUMMARY: DATE OF ADMISSION: 01/10/18 DATE OF DISCHARGE: PROVIDER: Sandra Mendoza MD. PREOPERATIVE DIAGNOSIS: Severe end-stage degenerative osteoarthritis of the right knee joint. OPERATIVE PROCEDURE: Right total knee arthroplasty. HISTORY: Ms. Aguirre is a 72-year-old female with years of increasingly severe right knee pain. She failed conservative treatment with antiinflammatories, pain medication... DICTATION CANCELED. ESTEPHANIE TANNER [id number]/[facility] #: [id number]
== END 2018-01-12 16:14 | disposition home or self-care (01) | DRG 470 ==
LOC: AA 05:54 → SSU 11:54
PROVIDERS: ADMIT Orthopaedic Surgery Adult Reconstructive Orthopaedic Surgery; ATTEND Orthopaedic Surgery Adult Reconstructive Orthopaedic Surgery
PROC: 0SRC0J9 Replacement of Right Knee Joint with Synthetic Substitute, Cemented, Open Approach (ICD-10-PCS; principal; 2018-01-10 07:30)
PROC: 30233N1 Transfusion of Nonautologous Red Blood Cells into Peripheral Vein, Percutaneous Approach (ICD-10-PCS; 2018-01-11)
DX: M17.11 Unilateral primary osteoarthritis, right knee (principal); K50.90 Crohn's disease, unspecified, without complications; D62 Acute posthemorrhagic anemia; Z68.41 Body mass index [BMI] 40.0-44.9, adult; T80.89XA Other complications following infusion, transfusion and therapeutic injection, initial encounter; Y84.8 Other medical procedures as the cause of abnormal reaction of the patient, or of later complication, without mention of misadventure at the time of the procedure; Y92.239 Unspecified place in hospital as the place of occurrence of the external cause; G47.33 Obstructive sleep apnea (adult) (pediatric); K21.9 Gastro-esophageal reflux disease without esophagitis; E03.9 Hypothyroidism, unspecified; Z96.652 Presence of left artificial knee joint; M21.161 Varus deformity, not elsewhere classified, right knee; L40.9 Psoriasis, unspecified; I10 Essential (primary) hypertension; R25.2 Cramp and spasm; E87.6 Hypokalemia; E66.01 Morbid (severe) obesity due to excess calories; M25.761 Osteophyte, right knee; Z79.01 Long term (current) use of anticoagulants; Z86.718 Personal history of other venous thrombosis and embolism; Z86.711 Personal history of pulmonary embolism; Z90.49 Acquired absence of other specified parts of digestive tract; Z88.2 Allergy status to sulfonamides; Z88.1 Allergy status to other antibiotic agents; Z88.8 Allergy status to other drugs, medicaments and biological substances; Z82.49 Family history of ischemic heart disease and other diseases of the circulatory system; M25.461 Effusion, right knee; Z72.89 Other problems related to lifestyle
CPT/HCPCS: 36415; 80048; 85014; 85018; 85049; 85610; 86078; 86703; 86706; 86803; 86850; 86900; 86901; 86922; 87340; 88305; 88311; A9270-GY; C1776; G8978-GP-CL; G8979-GP-CI; G8987-GO-CJ; G8988-GO-CI; J0690; J1650; J2250; J2270; J2405; J2704; J2795; J3010; P9040